=== PATIENT | male | born 1950 | race Caucasian/White ===

== ENCOUNTER 2018-10-07 09:32 | Inpatient (IN) | payer MEDICARE, MEDICAID ==
[~2018-10-07] VITALS: Ht 180.3 cm; Wt 79.5 kg
[2018-10-07] MEDS ORDERED: normal saline 1000ML IV soln IVB ONE (09:45)
[2018-10-07] MEDS ORDERED: diltiazem 5mg/ml 5ml inj. IV ONE ×3 (11:10→13:15)
[2018-10-07] MEDS ORDERED: CefTRIAXone 2gm/D5W 50ml 50 ML IV ONE ×3 (11:10→11:55)
[2018-10-07] MEDS: diltiazem-NS 100mg/100ml 100 ML IV SCH ×3 (11:10→15:24)
[2018-10-07 11:24] LABS: ALANINE AMINOTRANSFERASE 25 U/L (12-78); ALBUMIN 3.6 G/DL (3.4-5.0); ALKALINE PHOSPHATASE 81 IU/L (46-116); ANION GAP 9 (8-16); ASPARTATE AMINO TRANSFERASE 8 U/L (10-37); BLOOD UREA NITROGEN 35 MG/DL (7-18); CALCIUM 9.6 MG/DL (8.5-10.1); CHLORIDE 107 MMOL/L (99-107); CREATININE 1.46 MG/DL (0.60-1.10); MAGNESIUM 2.4 MG/DL (1.5-2.4); POTASSIUM 5.5 MMOL/L (3.5-5.1); SODIUM 145 MMOL/L (135-145); TOTAL CARBON DIOXIDE 28.7 MMOL/L (24-32); TOTAL PROTEIN 7.1 G/DL (6.4-8.2); eGFR 48 ML/MIN
[2018-10-07] MEDS ORDERED: normal saline 1000ML IV soln IV ONE (11:55)
[2018-10-07 12:42] LABS: GLUCOSE 509 MG/DL (70-104)
--- NOTE | 2018-10-07 12:55 | NUR ---
notified dr mendez that pt hr still running in btw 146 to 152 pt still on cardizem infusing at 5as per dr mendez he will order bolus cardiazem dose and increase the cardizem drip to 10 .dr segundo said he will put in orders.will follow the orders.
[2018-10-07 12:57] LABS: CLARITY,URINE CLEAR (Clear); COLOR,URINE YELLOW (Yellow); GLUCOSE, URINE >=1000 mg/dl (Neg); KETONES,URINE 15 mg/dl (Neg); LEUKOCYTE ESTERASE ,URINE NEGATIVE (Neg); NITRITES, URINE NEGATIVE (Neg); OCCULT BLOOD,URINE NEGATIVE (Neg); PH,URINE 5.5 (4.8-8.0); PROTEIN,URINE NEGATIVE (Neg); UROBILINOGEN,URINE 0.2 E.U/dL (0.2-1.0)
[2018-10-07 12:58] LABS: UA COLLECTION TYPE CLN CATCH MIDSTREAM
[2018-10-07 13:00] LABS: BACTERIA,URINE NONE SEEN /HPF (Neg); HYALINE CASTS 0-3 /LPF (NEGATIVE); RBC,URINE NONE SEEN /HPF (0-2); SQUAMOUS EPITHELIAL CELL,UR NONE SEEN /LPF (FEW); WBC,URINE 0-4 /HPF (0-4)
--- NOTE | 2018-10-07 13:10 | NUR ---
dr mendez informed that there is no new orders for cardiazem as per dr mendez will will put in orders rgt now.will follow the orders.
[2018-10-07 13:34] LABS: HEMATOCRIT 47.3 % (42.0-52.0); HEMOGLOBIN 15.5 g/dl (14.0-17.9); LYMPHOCYTES % (AUTO) 4.1 % (21-51); MEAN CORPUSCULAR HEMOGLOBIN 29.3 PG (27.0-31.0); MEAN CORPUSCULAR HGB CONC 32.7 g/dL (33.0-36.5); MEAN CORPUSCULAR VOLUME 89.7 FL (78-98); MEAN PLATELET VOLUME 10.1 FL (7.4-10.4); MONOCYTES % (AUTO) 9.8 % (2-12); NEUTROPHILS % (AUTO) 85.9 % (42-75); PLATELET COUNT 270 X10'3 (140-440); RED BLOOD COUNT 5.27 X10'6 (4.70-6.10); RED CELL DISTRIBUTION WIDTH 13.8 % (11.5-14.5); WHITE BLOOD COUNT 19.7 X10'3 (4.5-11.0)
[2018-10-07 13:35] LABS: BASOPHILS % (AUTO) 0.2 % (0-1); EOSINOPHILS % (AUTO) 0 % (0-6); LYMPHOCYTES # (AUTO) 0.8 X10'3 (1.1-4.8); MONOCYTES # (AUTO) 1.9 X10'3 (0-0.9); NEUTROPHILS # (AUTO) 16.9 X10'3 (1.8-7.7)
[2018-10-07] MEDS ORDERED: metoprolol tartrate 1mg/ml inj IV ONE (13:55)
--- NOTE | 2018-10-07 13:55 | NUR ---
NOTIFIED DR GOYAL THAT PT HR STILL 142-146 AFTER 15 MIN OF BOLUS DOSE AND INFUSION 10MG/HR DILTAZEM.DR GOYAL SAID HE WILL REORDER BOLUS DOSE.WILL FOLLOW THE ORDERS.
[2018-10-07 14:13] LABS: BASOPHILS # (AUTO) 0.1 X10'3 (0-0.2); BASOPHILS % (AUTO) 0.3 % (0-1); EOSINOPHILS % (AUTO) 0 % (0-6); HEMATOCRIT 46.8 % (42.0-52.0); HEMOGLOBIN 15.5 g/dl (14.0-17.9); LYMPHOCYTES # (AUTO) 0.9 X10'3 (1.1-4.8); MEAN CORPUSCULAR HEMOGLOBIN 30.2 PG (27.0-31.0); MEAN CORPUSCULAR HGB CONC 33.1 g/dL (33.0-36.5); MEAN PLATELET VOLUME 9.8 FL (7.4-10.4); MONOCYTES # (AUTO) 1.3 X10'3 (0-0.9); MONOCYTES % (AUTO) 6.9 % (2-12); NEUTROPHILS # (AUTO) 15.9 X10'3 (1.8-7.7); NEUTROPHILS % (AUTO) 87.8 % (42-75); PLATELET COUNT 251 X10'3 (140-440); RED BLOOD COUNT 5.15 X10'6 (4.70-6.10); RED CELL DISTRIBUTION WIDTH 13.7 % (11.5-14.5); WHITE BLOOD COUNT 18.2 X10'3 (4.5-11.0)
--- NOTE | 2018-10-07 14:35 | NUR ---
INFORMED DR GOYAL REGARDING PT HR 108 .NO NEW ORDERS.
[2018-10-07] MEDS ORDERED: dextrose ORAL solution 15 GM/59 ML bottle PO PRN ×2 (14:55)
[2018-10-07] MEDS ORDERED: glucagon, human recombinant 1mg kit SUBCUT PRN (14:55)
[2018-10-07] MEDS ORDERED: mag hydrox/Alum hydrox/simeth 30ml oral suspension PO PRN (14:55)
[2018-10-07] MEDS ORDERED: MESSAGE TO PHARMACY PO ONE (14:55)
[2018-10-07] MEDS ORDERED: dextrose 50%-water 50ml dispensing syringe IV PRN ×2 (14:55)
[2018-10-07] MEDS ORDERED: ondansetron/PF 4mg/2ml inj IV PRN (14:55)
[2018-10-07] MEDS ORDERED: diltiazem-D5W 125mg/125ml 125 ML IV SCH (14:55)
[2018-10-07] MEDS ORDERED: acetaminophen 325mg tablet PO PRN (14:55)
[2018-10-07] MEDS ORDERED: magnesium hydroxide 30ml (MOM) UD suspension PO PRN (14:55)
[2018-10-07] MEDS ORDERED: NO HOME MEDS (15:12)
[2018-10-07 15:33] LABS: MAGNESIUM 2.3 MG/DL (1.5-2.4)
[2018-10-07 15:38] LABS: HEMOGLOBIN A1C 10.6 % (4.5-6.2)
[2018-10-07] MEDS ORDERED: aspirin 325mg tablet PO ONE (16:55)
[2018-10-07] MEDS ORDERED: heparin 10,000 units/1 ML INJ IV ONE (17:05)
--- NOTE | 2018-10-07 17:18 | NUR ---
DR KIM REPORTED THAT CT SHOWS A TWO DAY OLD STROKE AND TO PUT IN THE PROTOCOLS. STROKE NURSE NOTIFIED. ASSESSMENT COMPLETED, SWALLOW EVALUATION COMPLETE. Addendum: 10/07/18 at 1724 by [facility], STROKE SEEN ON MRI NOT CT
[2018-10-07 17:24] LABS: CHOL/HDL RATIO 5.1 (0.00-4.99); CHOLESTEROL 137 MG/DL (0-200); HDL CHOLESTEROL 27 MG/DL (35-60); LDL CHOLESTEROL 95 MG/DL (50-100); TRIGLYCERIDES 83 MG/DL (20-135)
--- NOTE | 2018-10-07 17:45 | NUR ---
CLARIFIED FROM DR KIM ABOUT PT PT,PTT INR NOT DRAWN AND PT HAS ORDER FOR HEPARIN BOLUS AND INFUSION PER MD HE WILL PUT IN ORDER FOR IT .WILL WAIT FOR RESULT TO START HEPARIN DRIP.
--- NOTE | 2018-10-07 17:55 | NUR ---
LAB DRAWN FROM THE IV SITE.PT SON AT BEDSIDE EXPLAINED ABOUT THE POC ,DENIES ANY QUES,VERBALIZED UNDERSTANDING.HR 107.
[2018-10-07] MEDS: normal saline 1000ml 1,000 ML IV SCH (18:01)
--- NOTE | 2018-10-07 18:54 | NUR ---
LAB IN ROOM TO REDRAW THE BLD PREVIOUS GOT HEMOLYSIED.
[2018-10-07 19:21] LABS: PARTIAL THROMBOPLASTIN TIME 25 SECONDS (22-32)
[2018-10-07] MEDS: heparin 25,000 UNIT/250ml bag 250 ML IV SCH (19:35)
[2018-10-07] MEDS: insulin glargine (Lantus) pen - multi-dose SQ SCH (21:00)
--- NOTE | 2018-10-07 21:10 | NUR ---
Patient in room PCU 3017. I have received report from Veronica POSEY and had the opportunity to ask questions and assume patient care.
[2018-10-07 21:15] VITALS: BP 119/71
--- NOTE | 2018-10-07 21:40 | NUR ---
pt refused blood sugar check and blood sugar treatment after receiving education about the effects of high blood sugar. will keep monitoring, last blood sugar through lab work is 267
[2018-10-07 23:00] VITALS: BP 113/64
[2018-10-08] VITALS (11 sets, daily range): BP systolic 100–146; BP diastolic 57–120
[2018-10-08 02:08] LABS: BASOPHILS # (AUTO) 0.1 X10'3 (0-0.2); BASOPHILS % (AUTO) 0.4 % (0-1); EOSINOPHILS % (AUTO) 0.1 % (0-6); HEMATOCRIT 42.9 % (42.0-52.0); HEMOGLOBIN 14.2 g/dl (14.0-17.9); LYMPHOCYTES # (AUTO) 1.7 X10'3 (1.1-4.8); LYMPHOCYTES % (AUTO) 9.1 % (21-51); MEAN CORPUSCULAR HEMOGLOBIN 29.6 PG (27.0-31.0); MEAN CORPUSCULAR HGB CONC 33.1 g/dL (33.0-36.5); MEAN CORPUSCULAR VOLUME 89.5 FL (78-98); MEAN PLATELET VOLUME 9.7 FL (7.4-10.4); MONOCYTES # (AUTO) 1.5 X10'3 (0-0.9); MONOCYTES % (AUTO) 8.1 % (2-12); NEUTROPHILS # (AUTO) 15.7 X10'3 (1.8-7.7); NEUTROPHILS % (AUTO) 82.3 % (42-75); PLATELET COUNT 205 X10'3 (140-440); RED BLOOD COUNT 4.79 X10'6 (4.70-6.10)
[2018-10-08 02:13] LABS: ALBUMIN 3.3 G/DL (3.4-5.0); ANION GAP 13 (8-16); BLOOD UREA NITROGEN 30 MG/DL (7-18); BUN/CREATININE RATIO 31.9 (5.4-32.0); CALCIUM 9.2 MG/DL (8.5-10.1); CHLORIDE 112 MMOL/L (99-107); CREATININE 0.94 MG/DL (0.60-1.10); GLUCOSE 335 MG/DL (70-104); POTASSIUM 3.8 MMOL/L (3.5-5.1); SODIUM 148 MMOL/L (135-145); TOTAL CARBON DIOXIDE 22.9 MMOL/L (24-32); eGFR 80 ML/MIN
[2018-10-08] MEDS: heparin 25,000 UNIT/250ml bag 250 ML IV SCH ×3 (02:42→21:46)
[2018-10-08] MEDS: heparin 10,000 units/1 ML INJ IV PRN ×2 (02:44→14:41)
--- NOTE | 2018-10-08 02:45 | NUR ---
cardiac ptt 29, rate changed from 900-1200, gave a bolus of 4000 units according to protocol next PTT will be at 0845
[2018-10-08] MEDS: normal saline 1000ml 1,000 ML IV SCH (03:45)
[2018-10-08] MEDS: diltiazem-NS 100mg/100ml 100 ML IV SCH ×3 (05:31→14:24)
--- NOTE | 2018-10-08 06:20 | NUR ---
Problems reprioritized. Patient report given, questions answered & plan of care reviewed with Dariusz POSEY.
[2018-10-08] MEDS: aspirin 81mg tablet.DR PO SCH (07:46)
[2018-10-08] MEDS ORDERED: enoxaparin 40mg/0.4ml syringe SUBCUT SCH (08:00)
--- NOTE | 2018-10-08 09:00 | NUR ---
pt refused to take any insulin coverage. Education provided regarding hypoglycemia and diabetes management. He states that he does not want to take insulin states that he thinks he will be dependent on it. Reminded that he has diabetes and will be dependent on oral or injectable medication as well as diet control. He states understanding, but still refuses. Will try again at lunch. Dr Agrawal notified
--- NOTE | 2018-10-08 09:00 | NUR ---
pt had total of 47 carbs for breakfast and BG 286 He refused insulin MD notified.
[2018-10-08] MEDS ORDERED: diltiazem-D5W 125mg/125ml 125 ML IV SCH (09:05)
[2018-10-08] MEDS: sodium chloride 0.45% 1,000 ML IV SCH ×2 (09:10→19:48)
--- NOTE | 2018-10-08 09:16 | NUR ---
DM consult: Pt with hx T2DM with A1c 10.6. Per H&P pt previously with DM meds however was transitioned to diet controlled DM management and has not seen a doctor for several years and has not had an A1c check since then. Pt admit with Marlene al with RVR, hyperglycemia, and acute encephalopathy and noted to have a depressed affect. Pt also documented as resistive to care. DM education not appropriate at this time. Will provide prior to discharge once stable. Pt currently on CHO controlled diet with documented 50% PO intake first meal. Pt s/p BSS 10/[address] choudhury continuing current diet d/t pt swallowing well with no s/s aspiration. No documented LBM, currently with no routine bowel care. Will continue to follow. Recommendations: 1) Continue with CHO controlled diet 2) DM education prior to d/c once stable 3) Monitor need for routine bowel care 4) Wt per rx Addendum: 10/08/18 at [address] Amended: Links added.
--- NOTE | 2018-10-08 09:35 | NUR ---
Rangel Kennedy Rm 0337b critical lab PTT 105 on 1200u/hr Heparin. Infusion held x 1 hr per protocol KALPESH Mejia ext [phone]
[2018-10-08] MEDS: diltiazem 30mg tablet PO SCH ×3 (10:34→19:45)
--- NOTE | 2018-10-08 10:49 | NUR ---
Visited with pt and family. Pt has limited right leg movement, there is muscle flexion in the thigh and can move leg side to side but not lift. Apparently he has been falling at home and c/o right rib pain and hip pain. When tries to lift that right leg pt grimaces, and indicates both inability and pain. Pt's relative states that this morning on phone with pt he was having difficulty getting correct words out, for me he is silent unless spoken to and takes time to answer, but is fluent. His affect is flat. Family states significant wt loss over past 6 mos. as well. Newly dx DM while in the E, this admission. Currently on heparin drip for new onset afib, will transition to NOAC prior to discharge per Dr Agrawal's progress note. Will need statin at discharge as LDL is 95.
--- NOTE | 2018-10-08 12:14 | NUR ---
*page to Dr Nghia Kennedy rm 7236N Blood Glucose 348. Refuses Insulin coverage!!. Willing to take oral diabetic med, Pleasa advise KALPESH Mejia ext [phone]
[2018-10-08] MEDS: atorvastatin 20mg tablet PO SCH (12:30)
[2018-10-08] MEDS: insulin Lispro (HumaLOG) vial - multi-dose SQ SCH ×2 (14:12→19:05)
--- NOTE | 2018-10-08 18:19 | NUR ---
Problems reprioritized. Patient report given, questions answered & plan of care reviewed with KALPESH Mc .
[2018-10-08] MEDS: insulin glargine (Lantus) pen - multi-dose SQ SCH (21:00)
[2018-10-09] VITALS (7 sets, daily range): BP systolic 119–153; BP diastolic 73–110
[2018-10-09] MEDS: diltiazem-NS 100mg/100ml 100 ML IV SCH (01:03)
[2018-10-09] MEDS: diltiazem 30mg tablet PO SCH ×4 (02:23→20:02)
[2018-10-09 04:37] LABS: BASOPHILS # (AUTO) 0.1 X10'3 (0-0.2); BASOPHILS % (AUTO) 0.6 % (0-1); EOSINOPHILS # (AUTO) 0.2 X10'3 (0-0.9); EOSINOPHILS % (AUTO) 1.7 % (0-6); HEMATOCRIT 41.1 % (42.0-52.0); HEMOGLOBIN 13.6 g/dl (14.0-17.9); LYMPHOCYTES # (AUTO) 1.8 X10'3 (1.1-4.8); LYMPHOCYTES % (AUTO) 13.6 % (21-51); MEAN CORPUSCULAR HEMOGLOBIN 29.8 PG (27.0-31.0); MEAN CORPUSCULAR HGB CONC 33.1 g/dL (33.0-36.5); MEAN CORPUSCULAR VOLUME 89.9 FL (78-98); MEAN PLATELET VOLUME 9.5 FL (7.4-10.4); MONOCYTES # (AUTO) 1.1 X10'3 (0-0.9); MONOCYTES % (AUTO) 8.6 % (2-12); NEUTROPHILS # (AUTO) 9.8 X10'3 (1.8-7.7); NEUTROPHILS % (AUTO) 75.5 % (42-75); PLATELET COUNT 187 X10'3 (140-440); RED BLOOD COUNT 4.56 X10'6 (4.70-6.10); RED CELL DISTRIBUTION WIDTH 13.9 % (11.5-14.5)
[2018-10-09 04:43] LABS: ANION GAP 10 (8-16); BLOOD UREA NITROGEN 19 MG/DL (7-18); BUN/CREATININE RATIO 30.6 (5.4-32.0); CALCIUM 8.3 MG/DL (8.5-10.1); CHLORIDE 106 MMOL/L (99-107); CREATININE 0.62 MG/DL (0.60-1.10); GLUCOSE 186 MG/DL (70-104); SODIUM 141 MMOL/L (135-145); TOTAL CARBON DIOXIDE 25.5 MMOL/L (24-32); eGFR > 90 ML/MIN
[2018-10-09 04:54] LABS: POTASSIUM 2.8 MMOL/L (3.5-5.1)
[2018-10-09] MEDS ORDERED: magnesium 4gm in 100ml NS 100 ML IV PRN (05:20)
[2018-10-09] MEDS ORDERED: potassium CL 10mEq/100ml bag 100 ML IV PRN (05:20)
[2018-10-09] MEDS ORDERED: magnesium Cl slow-release 64mg tablet PO PRN (05:20)
[2018-10-09] MEDS ORDERED: potassium Cl 20 mEq SR tablet PO PRN (05:20)
[2018-10-09] MEDS: potassium Cl 20 mEq SR tablet PO PRN ×3 (05:44→15:19)
--- NOTE | 2018-10-09 06:00 | NUR ---
Patient in room PCU 3017. I have received report from Jesusita POSEY and had the opportunity to ask questions and assume patient care.
[2018-10-09] MEDS: sodium chloride 0.45% 1,000 ML IV SCH ×2 (06:51→16:41)
[2018-10-09] MEDS: aspirin 81mg tablet.DR PO SCH (08:43)
[2018-10-09] MEDS: atorvastatin 20mg tablet PO SCH (08:43)
[2018-10-09] MEDS: insulin Lispro (HumaLOG) vial - multi-dose SQ SCH ×3 (08:43→19:14)
[2018-10-09] MEDS: diltiazem-NS 100mg/100ml 125 ML IV SCH ×2 (09:00→09:17)
[2018-10-09] MEDS: apixaban 5mg tablet PO SCH ×2 (09:00→20:02)
[2018-10-09 09:56] LABS: MAGNESIUM 1.7 MG/DL (1.5-2.4); POTASSIUM 3.4 MMOL/L (3.5-5.1)
--- NOTE | 2018-10-09 11:22 | NUR ---
Page to Dr Agrawal re: Room 8511G Rangel Kennedy, c/o pain to bilat legs/feet, takes Tylenol with codeine once daily at home, can I have an order for pain medication, Gilda [id number] Addendum: 10/09/18 at 1339 by Gilda Kee RN 1130 am-return call from Dr Agrawal, new orders for Tylenol 650 mg Q6 hours prn mild pain
[2018-10-09] MEDS ORDERED: acetaminophen 325mg tablet PO PRN (11:55)
[2018-10-09] MEDS: metFORMIN 850mg tablet PO SCH (17:15)
--- NOTE | 2018-10-09 18:00 | NUR ---
Problems reprioritized. Patient report given, questions answered & plan of care reviewed with Jesusita POSEY.
[2018-10-09] MEDS: insulin glargine (Lantus) pen - multi-dose SQ SCH (21:00)
[2018-10-10] MEDS: diltiazem 30mg tablet PO SCH ×2 (02:11→08:33)
[2018-10-10] MEDS: sodium chloride 0.45% 1,000 ML IV SCH (02:17)
[2018-10-10 03:00] VITALS: BP 144/86
[2018-10-10 05:32] LABS: BASOPHILS % (AUTO) 0.2 % (0-1); EOSINOPHILS # (AUTO) 0.2 X10'3 (0-0.9); HEMATOCRIT 44.3 % (42.0-52.0); HEMOGLOBIN 14.8 g/dl (14.0-17.9); LYMPHOCYTES % (AUTO) 8.8 % (21-51); MEAN CORPUSCULAR HEMOGLOBIN 29.7 PG (27.0-31.0); MEAN CORPUSCULAR HGB CONC 33.5 g/dL (33.0-36.5); MEAN CORPUSCULAR VOLUME 88.6 FL (78-98); MEAN PLATELET VOLUME 9.1 FL (7.4-10.4); MONOCYTES % (AUTO) 9.4 % (2-12); NEUTROPHILS # (AUTO) 8.8 X10'3 (1.8-7.7); NEUTROPHILS % (AUTO) 79.6 % (42-75); PLATELET COUNT 160 X10'3 (140-440); WHITE BLOOD COUNT 11.1 X10'3 (4.5-11.0)
[2018-10-10 05:39] LABS: PARTIAL THROMBOPLASTIN TIME 29 SECONDS (22-32)
[2018-10-10 05:47] LABS: ANION GAP 10 (8-16); BLOOD UREA NITROGEN 15 MG/DL (7-18); BUN/CREATININE RATIO 23.1 (5.4-32.0); CALCIUM 8.5 MG/DL (8.5-10.1); CHLORIDE 105 MMOL/L (99-107); CREATININE 0.65 MG/DL (0.60-1.10); GLUCOSE 216 MG/DL (70-104); MAGNESIUM 1.8 MG/DL (1.5-2.4); POTASSIUM 3.6 MMOL/L (3.5-5.1); SODIUM 140 MMOL/L (135-145); TOTAL CARBON DIOXIDE 24.9 MMOL/L (24-32); eGFR > 90 ML/MIN
--- NOTE | 2018-10-10 06:00 | NUR ---
Patient in room PCU 3017. I have received report from Jesusita POSEY and had the opportunity to ask questions and assume patient care.
[2018-10-10] MEDS: atorvastatin 20mg tablet PO SCH (08:32)
[2018-10-10] MEDS: insulin Lispro (HumaLOG) vial - multi-dose SQ SCH (08:32)
[2018-10-10] MEDS: apixaban 5mg tablet PO SCH (08:32)
[2018-10-10] MEDS: aspirin 81mg tablet.DR PO SCH (08:32)
[2018-10-10] MEDS: metFORMIN 850mg tablet PO SCH (08:33)
[2018-10-10] MEDS ORDERED: diltiazem CD 120mg capsule (once-daily) PO SCH (09:15)
--- NOTE | 2018-10-10 11:33 | NUR ---
Page to Dr Agrawal re:Room 5656T Rangel Kennedy please put discharge orders in [facility], [facility] 6711
--- NOTE | 2018-10-10 11:40 | NUR ---
Report called to Rui ANDERSEN at [facility]. Patient to be picked up and transported there at 1245 today.
--- NOTE | 2018-10-10 13:00 | NUR ---
[facility] personnel here to burr picker patient. All personal belongings given to patient's son. PIV x2 to right forearm removed, cannula intact. Tele monitor equipment removed. Patient taken by wheelchair by [facility] staff to [facility]. Son plans to meet patient at [facility]. Transfer packet given to [facility] staff member.
[2018-10-11] MEDS ORDERED: diltiazem CD 120mg capsule (once-daily) PO SCH (08:00)
== END 2018-10-10 12:55 | DRG 65 ==
LOC: ER 09:32 → PCU 3S 20:45 → CMPBEDREQ 21:30
PROVIDERS: ADMIT Hospitalist; ATTEND Hospitalist
DX: I63.9 Cerebral infarction, unspecified (principal); E87.0 Hyperosmolality and hypernatremia; G93.40 Encephalopathy, unspecified; I48.91 Unspecified atrial fibrillation; R29.6 Repeated falls; E86.0 Dehydration; W19.XXXA Unspecified fall, initial encounter; D72.829 Elevated white blood cell count, unspecified; E11.65 Type 2 diabetes mellitus with hyperglycemia; F32.9 Major depressive disorder, single episode, unspecified; Y93.89 Activity, other specified; Y92.89 Other specified places as the place of occurrence of the external cause; Y99.8 Other external cause status; Z90.49 Acquired absence of other specified parts of digestive tract; E87.6 Hypokalemia
CPT/HCPCS: 36415; 70450; 70544; 70551; 71045; 80048; 80053; 80061; 81001; 82948; 83036; 83605; 83735; 83880; 84132; 84145; 84484; 85025; 85610; 85730; 87040; 87081; 92507; 92508; 92616; 93005; 93306; 93880; 96365; 96375; 96376; 97110; 97116; 97163; 99291; G0378; J0696; J1644; J1650; J1815; J3490; J7030

== ENCOUNTER 2018-10-17 03:40 | Emergency (ER) | payer MEDICARE, MEDICAID ==
[~2018-10-17] VITALS: Ht 177.8 cm; Wt 63.6 kg
[~2018-10-17 03:40] MED LIST: NO HOME MEDS
[2018-10-17] MEDS ORDERED: MAGN400O6 PO (04:26)
[2018-10-17] MEDS ORDERED: SERT50TA PO (04:26)
[2018-10-17] MEDS ORDERED: NA P133E4 RC (04:26)
[2018-10-17] MEDS ORDERED: ATOR20TA PO (04:26)
[2018-10-17] MEDS ORDERED: DILT120T3 PO (04:26)
[2018-10-17] MEDS ORDERED: ASPI81TA52 PO (04:26)
[2018-10-17] MEDS ORDERED: BISA10SU60 RC (04:26)
[2018-10-17] MEDS ORDERED: ONDA4TAB6 PO (04:26)
[2018-10-17] MEDS ORDERED: MULT-381 PO (04:26)
[2018-10-17] MEDS ORDERED: DOCU-148 PO (04:26)
[2018-10-17] MEDS ORDERED: INSU100C10 SQ (04:26)
[2018-10-17] MEDS ORDERED: RIVA20TA PO (04:26)
[2018-10-17] MEDS ORDERED: ACET-1008 PO (04:26)
[2018-10-17 04:32] LABS: BASOPHILS # (AUTO) 0.1 X10'3 (0-0.2); BASOPHILS % (AUTO) 0.9 % (0-1); EOSINOPHILS # (AUTO) 0.5 X10'3 (0-0.9); HEMATOCRIT 45.7 % (42.0-52.0); HEMOGLOBIN 15.4 g/dl (14.0-17.9); LYMPHOCYTES # (AUTO) 1.4 X10'3 (1.1-4.8); LYMPHOCYTES % (AUTO) 12.1 % (21-51); MEAN CORPUSCULAR HEMOGLOBIN 29.5 PG (27.0-31.0); MEAN CORPUSCULAR HGB CONC 33.6 g/dL (33.0-36.5); MEAN CORPUSCULAR VOLUME 87.8 FL (78-98); MEAN PLATELET VOLUME 8.9 FL (7.4-10.4); MONOCYTES # (AUTO) 1.4 X10'3 (0-0.9); NEUTROPHILS # (AUTO) 8.4 X10'3 (1.8-7.7); PLATELET COUNT 278 X10'3 (140-440); RED CELL DISTRIBUTION WIDTH 13.4 % (11.5-14.5); WHITE BLOOD COUNT 11.8 X10'3 (4.5-11.0)
[2018-10-17 04:46] LABS: ALANINE AMINOTRANSFERASE 23 U/L (12-78); ALBUMIN 3.2 G/DL (3.4-5.0); ALKALINE PHOSPHATASE 75 IU/L (46-116); ANION GAP 7 (8-16); ASPARTATE AMINO TRANSFERASE 12 U/L (10-37); BILIRUBIN,TOTAL 0.7 MG/DL (0.1-1.0); BLOOD UREA NITROGEN 15 MG/DL (7-18); BUN/CREATININE RATIO 18.5 (5.4-32.0); CALCIUM 9.2 MG/DL (8.5-10.1); CHLORIDE 101 MMOL/L (99-107); CREATININE 0.81 MG/DL (0.60-1.10); GLUCOSE 215 MG/DL (70-104); POTASSIUM 3.1 MMOL/L (3.5-5.1); SODIUM 136 MMOL/L (135-145); TOTAL CARBON DIOXIDE 28.3 MMOL/L (24-32); TOTAL PROTEIN 6.3 G/DL (6.4-8.2); eGFR > 90 ML/MIN
[2018-10-17 04:53] LABS: LIPASE 412 U/L (73-393); MAGNESIUM 1.7 MG/DL (1.5-2.4)
[2018-10-17 05:08] LABS: CLARITY,URINE SLIGHTLY CLOUDY (Clear); COLOR,URINE YELLOW (Yellow); GLUCOSE, URINE 250 mg/dl (Neg); KETONES,URINE 15 mg/dl (Neg); LEUKOCYTE ESTERASE ,URINE NEGATIVE (Neg); NITRITES, URINE NEGATIVE (Neg); OCCULT BLOOD,URINE LARGE (Neg); PH,URINE 6.5 (4.8-8.0); PROTEIN,URINE NEGATIVE (Neg)
[2018-10-17 05:10] LABS: UA COLLECTION TYPE CLN CATCH MIDSTREAM
[2018-10-17 05:17] LABS: RBC,URINE TNTC /HPF (0-2); WBC,URINE 0-4 /HPF (0-4)
[2018-10-17 05:18] LABS: BACTERIA,URINE FEW /HPF (Neg); MUCUS STRANDS FEW /LPF (Neg); SQUAMOUS EPITHELIAL CELL,UR FEW /LPF (FEW)
[2018-10-17] MEDS ORDERED: normal saline 1000ML IV soln IVB ONE (05:20)
[2018-10-17] MEDS ORDERED: diltiazem 5mg/ml 5ml inj. IV ONE (05:25)
[2018-10-17] MEDS ORDERED: potassium Cl 10 mEq/100mL bag IV ONE (05:25)
--- NOTE | 2018-10-17 05:38 | NUR ---
DR BEJARANO UPDATED OF PTS' K 3.1 AND HR SUSTAINING AT 120'S. 1 LITER NS AND CARDIXIEM 15 MG IV AND K 10 MEQ IVPB NOW ORDERED. PT GIVEN WARM BLANKET
--- NOTE | 2018-10-17 06:15 | NUR ---
REPORT CALLED TO DAYA AT [facility]. REPORT CALLED TO KALPESH OLIVAS, AT [facility]. [facility]. WALT TOLBERT TO COORDINATE.
--- NOTE | 2018-10-17 06:32 | NUR ---
[facility] CONSULTED FOR TRANSPORT, NO ETA GIVEN. DISPATCH WORKING ON CALLING IN A DAIRY SPECIALIST.
[2018-10-17 07:14] VITALS: BP 161/77
== END 2018-10-17 08:32 | disposition home or self-care (01) ==
LOC: ER 03:40
DX: K59.00 Constipation, unspecified (principal); E87.6 Hypokalemia; E11.9 Type 2 diabetes mellitus without complications; Z79.82 Long term (current) use of aspirin; Z79.4 Long term (current) use of insulin; Z79.899 Other long term (current) drug therapy
CPT/HCPCS: 36415; 71045; 74176; 80053; 81001; 83690; 83735; 83880; 84484; 85025; 93005; 96365; 96375; 99284; J3480; J7030; J3490

== ENCOUNTER 2022-08-06 17:06 | Emergency (ER) | payer MEDICARE, MEDICAID ==
[~2022-08-06] VITALS: Ht 177.8 cm; Wt 78.6 kg
[~2022-08-06 17:06] MED LIST changes: +ACET-1008 PO; +ASPI81TA52 PO; +ATOR20TA PO; +BISA10SU60 RC; +DILT120T3 PO; +DOCU-148 PO; +INSU100C10 SQ; +MAGN400O6 PO; +MULT-381 PO; +NA P133E4 RC; +ONDA4TAB6 PO; +RIVA20TA PO; +SERT50TA PO
[2022-08-06 17:07] VITALS: BP 111/65
[2022-08-06] MEDS ORDERED: HYDR-3973 PO (20:29)
== END 2022-08-06 22:09 | disposition home or self-care (01) ==
LOC: ER 17:07
DX: S22.32XA Fracture of one rib, left side, initial encounter for closed fracture (principal); S40.022A Contusion of left upper arm, initial encounter; S50.12XA Contusion of left forearm, initial encounter; S09.90XA Unspecified injury of head, initial encounter; S16.1XXA Strain of muscle, fascia and tendon at neck level, initial encounter; E11.9 Type 2 diabetes mellitus without complications; W19.XXXA Unspecified fall, initial encounter; Y93.89 Activity, other specified; Y92.89 Other specified places as the place of occurrence of the external cause; Y99.8 Other external cause status
CPT/HCPCS: 70450; 71100; 72125; 73030; 73090; 73110; 99284; A4565